=== PATIENT | male | born 1950 | race Caucasian/White ===

== ENCOUNTER 2017-10-29 18:42 | Inpatient (IN) | payer MEDICARE, OTHER ==
[~2017-10-29] VITALS: Ht 188 cm; Wt 114.9 kg
[2017-10-29 11:15] VITALS: BP 173/81; PULSE 70; RESP 18; TEMP 98; O2SAT 98
[2017-10-29 23:15] VITALS: BP 173/81; PULSE 71; RESP 18; TEMP 98; O2SAT 98
[2017-10-30] MEDS ORDERED: ALUMINUM/MAGNESIUM/SIMETH 30 ML CUP PO PRN (00:30)
[2017-10-30] MEDS ORDERED: ACETAMINOPHEN 325 MG TAB PO PRN (00:30)
[2017-10-30] MEDS ORDERED: diphenhydrAMINE HCL 50 MG CAP - HS PRN PO (00:30)
[2017-10-30] MEDS ORDERED: MAGNESIUM HYDROXIDE SUSP 30 ML CUP PO PRN (00:30)
[2017-10-30] MEDS ORDERED: NICOTINE 21 MG/24 HR PATCH T-DERMAL PRN (00:30)
[2017-10-30] MEDS ORDERED: FLUMAZENIL 0.5 MG/5 ML VIAL IV PUSH PRN (01:30)
[2017-10-30] MEDS ORDERED: LORazepam 2 MG/ML VIAL IV PUSH PRN ×4 (01:30)
[2017-10-30] MEDS ORDERED: LORazepam 2 MG TAB PO PRN (01:30)
[2017-10-30] MEDS ORDERED: LORazepam 1 MG TAB PO PRN (01:30)
[2017-10-30] MEDS ORDERED: GLUCAGON 1 MG/ML VIAL OTHER PRN ×2 (01:45→12:00)
[2017-10-30] MEDS ORDERED: DEXTROSE 50% IN WATER 50 ML VIAL(D50) IV PUSH PRN ×2 (01:45→12:00)
[2017-10-30 06:00] VITALS: BP 122/58; PULSE 56; RESP 18; TEMP 98.2; O2SAT 99
[2017-10-30] MEDS ORDERED: LOW DOSE INSULIN NOVOLOG SUPPLEMENTAL SCALE SQ SCH (08:00)
[2017-10-30 08:02] LABS: BASOPHIL % 0.5 % (0.0-2.0); EOSINOPHIL # 0.1 TH/MM3 (0-0.4); EOSINOPHIL % 1.5 % (0.0-4.0); HEMATOCRIT 42.2 % (39.0-51.0); HEMOGLOBIN 14.7 GM/DL (13.0-17.0); LYMPHOCYTE # 2.2 TH/MM3 (1.0-4.8); MEAN CORPUSCULAR HEMOGLOBIN 31.8 PG (27.0-34.0); MEAN CORPUSCULAR HGB CONC 34.9 % (32.0-36.0); MEAN PLATELET VOLUME 8.5 FL (7.0-11.0); MONO % 9.4 % (0.0-8.0); MONOCYTE # 0.7 TH/MM3 (0-0.9); NEUT % 57.6 % (16.0-70.0); PLATELET COUNT 188 TH/MM3 (150-450); RED BLOOD COUNT 4.63 MIL/MM3 (4.50-5.90); RED CELL DISTRIBUTION WIDTH 14.1 % (11.6-17.2)
[2017-10-30 08:33] LABS: ALBUMIN 3.5 GM/DL (3.4-5.0); AST (GOT) 11 U/L (15-37); BLOOD UREA NITROGEN 20 MG/DL (7-18); CALCIUM 9.2 MG/DL (8.5-10.1); CHLORIDE 100 MEQ/L (98-107); GLOMERULAR FILTRATION RATE 84 ML/MIN (>89); GLUCOSE,RANDOM 80 MG/DL (74-106); SODIUM (NA) 141 MEQ/L (136-145)
[2017-10-30 08:34] LABS: ALT (GPT) 20 U/L (12-78); CHOLESTEROL 178 MG/DL (120-200); TRIGLYCERIDES 66 MG/DL (42-150)
[2017-10-30 09:00] LABS: ALKALINE PHOSPHATASE 80 U/L (45-117); HDL CHOLESTEROL 36.3 MG/DL (40.0-60.0); LDL CHOLESTEROL 129 MG/DL (0-99); TOTAL BILIRUBIN ADULT 0.3 MG/DL (0.2-1.0); TOTAL PROTEIN 7.2 GM/DL (6.4-8.2)
--- NOTE | 2017-10-30 11:42 | PD.CONS ---
HPI Service [facility] Hospitalists Consult Requested By Dr. Belcher Reason for Consult Medical management Primary Care Physician Unknown Diagnoses: History of Present Illness 67-year-old male with a past medical history significant for HTN, HLD , DM, neuropathy, PR, bipolar disorder, schizophrenia, multiple personality disorder, tobacco and alcohol abuse who presented to [facility] psychiatric department after being placed under [place] act by police department. Spoke with nurse who states that patient apparently is homeless and was found urinating and defecating in public and therefore placed under Abrams act for his safety. Patient is seen and examined in his room and states that he was on his way to the airport to travel to see his daughter when he urinated in public and police arrested him. He reports that he had recently gone to [facility] and picked up all of his medications prior to being Abrams acted. At the time of mild evaluation he denies any fevers, chills, nausea, vomiting, diarrhea, headaches, lightheadedness, cough or shortness of breath. He does endorse dysuria which he states has been ongoing for the past 2 weeks, denies any dysuria or hesitancy. He reports taking insulin both short acting and long-acting at home for blood sugar control. He is unaware of the doses that he takes. During my interaction with him redirection is needed as patient focuses on where I am from and how old I am. He is pleasant, cooperative, and responds appropriately. Review of Systems Except as stated in HPI: all other systems reviewed are Neg Past Family Social History Allergies: Coded Allergies: benztropine (Verified Allergy, Severe, 10/29/17) PER DR BAUTISTA---PATIENT ALLERGIC TO COGENTIN haloperidol (Verified Allergy, Severe, 10/29/17) Sulfa (Sulfonamide Antibiotics) (Verified Allergy, Unknown, 10/29/17) Past Medical History Diabetes mellitus Hypertension Hyperlipidemia Neuropathy Bipolar disorder Schizophrenia Multiple personality disorder PR, denies stenting Past Surgical History Colonoscopy 4 months ago with cyst removal Active Ordered Medications Current Medications Medications (Trade) Dose Ordered Sig/Shireen Route Start Time Stop Time Status Last Admin (Benadryl) 50 mg HS PRN PO 10/30/17 00:30 (Tylenol) 650 mg Q4H PRN PO 10/30/17 00:30 (Milk Of Magnesia Liq) 30 ml DAILY PRN PO 10/30/17 00:30 (Mag-Al Plus Susp Liq) 30 ml Q6H PRN PO 10/30/17 00:30 (Habitrol 21 Mg Patch.24 Hr) 1 patch DAILY PRN T-DERMAL 10/30/17 00:30 Miscellaneous Information 1 HS T-DERMAL 10/30/17 21:00 (Ativan) 1 mg Q4H PRN PO 10/30/17 01:30 (Ativan Inj) 1 mg Q4H PRN IV PUSH 10/30/17 01:30 (Ativan) 2 mg Q2H PRN PO 10/30/17 01:30 (Ativan Inj) 2 mg Q2H PRN IV PUSH 10/30/17 01:30 (Ativan Inj) 2 mg Q1H PRN IV PUSH 10/30/17 01:30 (Ativan Inj) 2 mg Q15M PRN IV PUSH 10/30/17 01:30 (Romazicon Inj) 0.2 mg Q1M PRN IV PUSH 10/30/17 01:30 (D50w (Vial) Inj) 50 ml UNSCH PRN IV PUSH 10/30/17 12:00 (Glucagon Inj) 1 mg UNSCH PRN OTHER 10/30/17 12:00 (NovoLOG SUPPLEMENTAL SCALE) 1 ACHS SLIDING SCALE SQ 10/30/17 12:00 (Vitamin D3) 1,000 units DAILY PO 10/31/17 09:00 (SEROquel) 50 mg HS PO 10/30/17 21:00 (Depakote Dr) 500 mg BID PO 10/30/17 12:45 Family History Father: PR Mother: aneurysm Sister: GI bleed Brother: PR Social History Tobacco: 2-3 PPD X >40yrs Alcohol use: 2-6 six pack of beers daily, last drink was (10/25) per patient Illicit drug use: Marijuana, daily or as often as he can obtain Physical Exam Vital Signs Vital Signs Date Time Temp Pulse Resp B/P (MAP) Pulse Ox O2 Delivery O2 Flow Rate FiO2 10/30/17 06:00 98.2 56 18 122/58 (79) 99 10/29/17 23:15 98.0 71 18 173/81 (111) 98 Physical Exam GENERAL: This is a well-nourished, well-developed patient, in no apparent distress. SKIN: No rashes or ecchymoses. Right leg posterior ankle scab noted with no surrounding redness, warmth, or drainage. Cool and dry. HEAD: Atraumatic. Normocephalic. EYES: Pupils equal round and reactive. Extraocular motions intact. No scleral icterus. No injection or drainage. ENT: Nose without bleeding, purulent. Throat without erythema. Uvula midline. Airway patent. NECK: Trachea midline. No JVD CARDIOVASCULAR: Regular rate and rhythm without murmurs, gallops, or rubs. RESPIRATORY: Clear to auscultation. Breath sounds equal bilaterally. No wheezes , rales, or rhonchi. GASTROINTESTINAL: Abdomen soft, non-tender, nondistended. Normoactive bowel sounds in all quadrants. MUSCULOSKELETAL: Extremities without clubbing, cyanosis, or edema. No joint tenderness, effusion, or edema noted. No calf tenderness. Negative Homans sign bilaterally. NEUROLOGICAL: Awake and alert. Cranial nerves II through XII intact. Motor and sensory grossly within normal limits. Five out of 5 muscle strength in all muscle groups. Normal speech. Laboratory Laboratory Tests Test 10/30/17 06:03 White Blood Count 7.0 Red Blood Count 4.63 Hemoglobin 14.7 Hematocrit 42.2 Mean Corpuscular Volume 91.0 Mean Corpuscular Hemoglobin 31.8 Mean Corpuscular Hemoglobin Concent 34.9 Red Cell Distribution Width 14.1 Platelet Count 188 Mean Platelet Volume 8.5 Neutrophils (%) (Auto) 57.6 Lymphocytes (%) (Auto) 31.0 Monocytes (%) (Auto) 9.4 Eosinophils (%) (Auto) 1.5 Basophils (%) (Auto) 0.5 Neutrophils # (Auto) 4.0 Lymphocytes # (Auto) 2.2 Monocytes # (Auto) 0.7 Eosinophils # (Auto) 0.1 Basophils # (Auto) 0.0 CBC Comment DIFF FINAL Differential Comment Blood Urea Nitrogen 20 Creatinine 0.90 Random Glucose 80 Total Protein 7.2 Albumin 3.5 Calcium Level 9.2 Alkaline Phosphatase 80 Aspartate Amino Transf (AST/SGOT) 11 Alanine Aminotransferase (ALT/SGPT) 20 Total Bilirubin 0.3 Sodium Level 141 Potassium Level 4.9 Chloride Level 100 Carbon Dioxide Level 34.0 Anion Gap 7 Estimat Glomerular Filtration Rate 84 Triglycerides Level 66 Cholesterol Level 178 LDL Cholesterol 129 HDL Cholesterol 36.3 Cholesterol/HDL Ratio 4.90 Vitamin B12 Level 723 25-Hydroxy Vitamin D Total 18.0 Thyroid Stimulating Hormone 3rd Gen 4.270 Result Diagram: 10/30/17 0603 10/30/17 0603 Assessment and Plan Assessment and Plan 67-year-old male with a past medical history significant for HTN, HLD , DM, neuropathy, PR, bipolar disorder, schizophrenia, multiple personality disorder, tobacco and alcohol abuse who presented to [facility] psychiatric department after being placed under Abrams act by police department after he was found urinating defecating in public. [facility] consulted to assist with ongoing medical management. Bipolar/multiple personality disorder Schizophrenia -Management per psychiatry, greatly appreciated. Diabetes mellitus -1800 ADA diet, Accu-Cheks with insulin sliding scale -Nurse to complete medication reconciliation, will start dose of long-acting insulin -Hemoglobin A1c pending -Monitor blood sugars and adjust insulin accordingly HTN/?PR HLD -Patient to complete medication reconciliation -Initial blood pressure elevated, BP this morning stable -LDL 129, will need statin given PR history Vitamin D deficiency - Start cholecalciferol 1,000units daily Alcohol/tobacco abuse -Counseled on the importance of cessation of both tobacco and alcohol consumption and dangers associated with each. -Nicotine patch on board -Patient reports his last alcohol drink on , CIWA, monitor for DT's Abnormal TSH -TSH 4.27, free T4 1.03, no treatment indicated at the moment. DVT prophylaxis-ambulating Thank you for this consultation, will continue to follow along. Discussed Condition With Simi Leigh Oct 30, 2017 11:42
[2017-10-30] MEDS: INSULIN ASPART SUPPLEMENTAL SCALE SQ SCH ×3 (12:00→21:00)
[2017-10-30] MEDS: DIVALPROEX DR 500 MG TABEC PO SCH ×2 (12:45→20:23)
[2017-10-30] MEDS ORDERED: HUMALOG SQ (14:47)
[2017-10-30] MEDS ORDERED: DEPA500T3 PO (14:47)
[2017-10-30] MEDS ORDERED: FOLI800T PO (14:47)
[2017-10-30] MEDS ORDERED: THERM PO (14:47)
[2017-10-30] MEDS ORDERED: DULE100A INH (14:47)
[2017-10-30] MEDS ORDERED: LEVEMIR SQ (14:47)
[2017-10-30] MEDS ORDERED: HUMALOG (14:47)
[2017-10-30 16:00] VITALS: BP 160/75; PULSE 59; RESP 18; TEMP 98.3; O2SAT 96
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
[2017-10-30 16:27] LABS: HEMOGLOBIN A1C 10.1 % (4.3-6.0)
[2017-10-30] MEDS: REMOVE OLD NICOTINE PATCH T-DERMAL SCH (21:00)
[2017-10-30] MEDS ORDERED: QUEtiapine FUMARATE 25 MG TAB PO SCH (21:00)
[2017-10-31 05:32] VITALS: BP 117/62; PULSE 58; RESP 16; TEMP 98.2; O2SAT 98
[2017-10-31] MEDS: INSULIN ASPART SUPPLEMENTAL SCALE SQ SCH ×4 (08:00→20:50)
[2017-10-31] MEDS ORDERED: INSULIN DETEMIR 100 UNITS/ML VIAL SQ SCH ×2 (09:00→21:00)
[2017-10-31] MEDS: FOLIC ACID 1 MG TAB PO SCH (09:24)
[2017-10-31] MEDS: CHOLECALCIFEROL (VIT D3) 1000 UNIT TAB PO SCH (09:24)
[2017-10-31] MEDS: MULTIVITAMINS/MINERALS THERAPEUTIC TAB PO SCH (09:24)
[2017-10-31] MEDS: DIVALPROEX DR 500 MG TABEC PO SCH ×2 (09:24→21:55)
--- NOTE | 2017-10-31 10:29 | HHI.PYPN ---
Subjective Remarks Patient seen for follow, chart reviewed. Discussion nursing staff reported the patient is noted to be somewhat loud on the unit but not aggressive and compliant with treatment. Patient was found lying hospital bed B, cooperative. Patient states that he slept well, eating and drinking well with no difficulty with bowel movement. Patient reports tolerating medications well. Patient states that he was planning to go to the bus station to go back to [place] in contrast to's statement of him having plan to fly back to [place]. Patient mentions that he last spoke to his daughter 2 weeks ago, has been homeless for the past 3-4 months after his discharge from sober living facility which she was house that for 8 weeks. Patient states that he injured this over living facility after his last discharge from what may be an inpatient psychiatry unit although he refers to it as [facility]. Patient states "[facility] because I was manic depressive". 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 Review of Systems Except as stated in HPI: all other systems reviewed are Neg Mental Status Examination Appearance: Disheveled Consciousness: Alert Orientation: Person, Place Motor Activity: Normal gait Speech: Unremarkable Language: Adequate Fund of Knowledge: Inadequate Attention and Concentration: Adequate Memory: Unremarkable Mood: Appropriate Affect: Appropriate Thought Process & Associations: Disorganized (At times), Other ([place]) Thought Content: Bizarre thinking, Delusional Hallucination Type: None Delusion Type: Bizarre Suicidal Ideation: No Suicidal Plan: No Suicidal Intention: No Homicidal Ideation: No Homicidal Plan: No Homicidal Intention: No Insight: Poor Judgment: Poor Results Vitals/IOs Vital Signs Date Time Temp Pulse Resp B/P (MAP) Pulse Ox O2 Delivery O2 Flow Rate FiO2 10/31/17 05:32 98.2 58 16 117/62 (80) 98 Intake and Output 10/31/17 10/31/17 11/01/17 08:00 16:00 00:00 Intake Total 240 ml Balance 240 ml Assessment & Plan Problem List: (1) Schizophrenia ICD Codes: F20.9 - Schizophrenia, unspecified Assessment & Plan Patient this time continue with some disorganization, poor insight to his mental illness but has been compliant with treatment. We will continue to titrate quetiapine to therapeutic dose, 100mg tonight, continue Depakote and will draw Depakote level 11/02/17. Continue monitor mood and behavior. Treatment team to consider explore disposition in regards to housing post discharge. Discharge planning in progress. Justification for Cont. Inpt. At risk for decompensation at lower level of care Sean Jackman MD Oct 31, 2017 10:28
--- NOTE | 2017-10-31 14:23 | HHI.PR ---
Subjective Remarks Follow-up visit for diabetes, HTN, and dysuria. Patient seen and examined resting comfortably in bed in no acute distress. He denies any fevers, chills, nausea, vomiting, diarrhea or headaches. He does continue to complain of some stinging with urination, denies any hematuria, or back pain. Spoke with nurse who reports patient has been having blood sugars in the 200s. Objective Vitals Vital Signs Date Time Temp Pulse Resp B/P (MAP) Pulse Ox O2 Delivery O2 Flow Rate FiO2 10/31/17 05:32 98.2 58 16 117/62 (80) 98 10/30/17 16:00 98.3 59 18 160/75 (103) 96 I/O 10/30/17 10/30/17 10/30/17 10/31/17 10/31/17 10/31/17 07:00 15:00 23:00 07:00 15:00 23:00 Intake Total 480 ml 480 ml 480 ml Balance 480 ml 480 ml 480 ml Intake Oral 480 ml 480 ml 480 ml Result Diagram: 10/30/1760210/30/17 06 Objective Remarks GENERAL: This is a well-nourished, well-developed patient, in no apparent distress. SKIN: No rashes or ecchymoses. Right leg posterior ankle scab noted with no surrounding redness, warmth, or drainage. Cool and dry. HEAD: Atraumatic. Normocephalic. EYES: Pupils equal round and reactive. Extraocular motions intact. No scleral icterus. No injection or drainage. ENT: Nose without bleeding, purulent. Throat without erythema. Uvula midline. Airway patent. NECK: Trachea midline. No JVD CARDIOVASCULAR: Regular rate and rhythm without murmurs, gallops, or rubs. RESPIRATORY: Clear to auscultation. Breath sounds equal bilaterally. No wheezes , rales, or rhonchi. GASTROINTESTINAL: Abdomen soft, non-tender, nondistended. Normoactive bowel sounds in all quadrants. MUSCULOSKELETAL: Extremities without clubbing, cyanosis, or edema. No joint tenderness, effusion, or edema noted. No calf tenderness. Negative Homans sign bilaterally. NEUROLOGICAL: Awake and alert. Cranial nerves II through XII intact. Motor and sensory grossly within normal limits. Five out of 5 muscle strength in all muscle groups. Normal speech. A/P Assessment and Plan 67-year-old male with a past medical history significant for HTN, HLD , DM, neuropathy, [place], bipolar disorder, schizophrenia, multiple personality disorder, tobacco and alcohol abuse who presented to [place] psychiatric department after being placed under [place] act by police department after he was found urinating defecating in public. [facility] consulted to assist with ongoing medical management. Bipolar/multiple personality disorder Schizophrenia -Management per psychiatry, greatly appreciated. Diabetes mellitus -1800 ADA diet, Accu-Cheks with insulin sliding scale blood sugars in the 200s today -Hemoglobin A1c 10.1 -Will increase daytime Levemir to 12 units, add 10 units of Levemir at at bedtime -Continue monitoring blood sugars and adjusting accordingly -Consult special educator, consult dietary to advise on increased fluid portions HTN/?[place] HLD - BP stable -LDL 129, will need statin given [place] history and diabetic history - Start Pravastatin 20mg HS Vitamin D deficiency - Start cholecalciferol 1,000units daily Alcohol/tobacco abuse -Counseled on the importance of cessation of both tobacco and alcohol consumption and dangers associated with each. -Nicotine patch on board -Patient reports his last alcohol drink on , CIWA, monitor for DT's Abnormal TSH -TSH 4.27, free T4 1.03, no treatment indicated at the moment. Dysuria - UA completed, negative, +for glucose DVT prophylaxis-ambulating Plan discussed with patient and nurse. Simi Greene Oct 31, 2017 14:22
--- NOTE | 2017-10-31 14:35 | PD.TTN ---
Patient Problems 1. Discharge planning 2. Medication compliance 3. Knowledge deficit 4. Lack of coping skills Progress Toward Goals Provider Present: Dr. Hao Jackman Provider Input: 10/31/17 patient appears known to local police and community/sma he has been off his meds, will start on medications and titrate them for a few days, he voiced wish to go back to [place] Psychiatric Counselors Present: Amarilys Lopez LCSW Psych Therapist Input: 10/31/17 he appears somewhat manic and impulsive, grandiose and delusional having several wifes and no idea how many children, but provided info on 2 daughtesr in [facility] tried to call them and no answer Group Spec/RT/OT/HOWARD Present: LEE Figueroa Group Spec/RT/OT/HOWARD Input: 10/31/17 new but appears to engage wanting to go outside and talk and socialize Amarilys Lopez LCSW Oct 31, 2017 14:35
[2017-10-31 15:17] LABS: BILIRUBIN, URINE NEG (NEG); BLOOD, URINE NEG (NEG); GLUCOSE,URINE 300 mg/dL (NEG); KETONE, URINE NEG (NEG); NITRITE,URINE NEG (NEG); URINE COLOR LIGHT-YELLOW (YELLW/STRAW); URINE LEUKOCYTE ESTERASE NEG (NEG)
[2017-10-31] MEDS: metFORMIN HCL 500 MG TAB PO SCH (16:56)
[2017-10-31 18:02] VITALS: BP 144/82; PULSE 77; RESP 16; TEMP 97.1; O2SAT 98
[2017-10-31] MEDS ORDERED: QUEtiapine FUMARATE 100 MG TAB PO SCH (21:00)
[2017-10-31] MEDS: REMOVE OLD NICOTINE PATCH T-DERMAL SCH (21:00)
[2017-10-31] MEDS: PRAVASTATIN SOD 20 MG TAB PO SCH (21:56)
--- NOTE | 2017-10-31 22:53 | EKG ---
Date Performed: 10/31/2017 Time Performed: 12:02:27 PTAGE: 67 years EKG: Sinus rhythm WITH FIRST DEGREE AV BLOCK PATTERN CONSISTENT WITH PULMONARY DISEASE LEFT ANTERIOR FASCICULAR BLOCK ABNORMAL ECG NO PREVIOUS TRACING DOCTOR: Abimael Magallanes Interpretating Date/Time 10/31/2017 22:51:02
[2017-11-01 04:44] VITALS: BP 128/66; PULSE 66; RESP 16; TEMP 98.2; O2SAT 98
[2017-11-01] MEDS: INSULIN ASPART SUPPLEMENTAL SCALE SQ SCH ×4 (07:38→20:28)
[2017-11-01] MEDS: DIVALPROEX DR 500 MG TABEC PO SCH ×2 (07:39→20:28)
[2017-11-01] MEDS: metFORMIN HCL 500 MG TAB PO SCH ×2 (07:39→16:44)
[2017-11-01] MEDS: INSULIN DETEMIR 100 UNITS/ML VIAL SQ SCH (07:40)
[2017-11-01] MEDS: MULTIVITAMINS/MINERALS THERAPEUTIC TAB PO SCH (07:40)
[2017-11-01] MEDS: FOLIC ACID 1 MG TAB PO SCH (07:40)
[2017-11-01] MEDS: CHOLECALCIFEROL (VIT D3) 1000 UNIT TAB PO SCH (07:41)
--- NOTE | 2017-11-01 10:39 | HHI.PYPN ---
Subjective Remarks Patient seen for follow, chart reviewed. Discussion nursing staff reported the patient has been compliant with treatment has not had any behavioral disturbances since admission to the unit. Patient was found ambulating noted B , cooperative with interview. Patient state he has been feeling "great" denying any perceptual disturbances, denies any SI or HI. Patient states that he continues to plan to go to [place] where his assistant activities director will continue to assist him with his finances. Patient noted to be's slightly hyperverbal with slightly pressured speech but improving. Review of Systems Except as stated in HPI: all other systems reviewed are Neg Mental Status Examination Appearance: Disheveled Consciousness: Alert Orientation: Person, Place Motor Activity: Normal gait Speech: Unremarkable Language: Adequate Fund of Knowledge: Inadequate Attention and Concentration: Adequate Memory: Unremarkable Mood: Appropriate Affect: Appropriate Thought Process & Associations: Disorganized (At times), Other ([place]) Thought Content: Bizarre thinking (Less so today), Delusional (Less so today) Hallucination Type: None Delusion Type: Bizarre Suicidal Ideation: No Suicidal Plan: No Suicidal Intention: No Homicidal Ideation: No Homicidal Plan: No Homicidal Intention: No Insight: Poor Judgment: Poor Results Labs Labs reviewed Test 10/31/17 14:23 Urine Color LIGHT-YELLOW Urine Turbidity CLEAR Urine pH 7.0 Urine Specific [place] 1.007 Urine Protein NEG mg/dL Urine Glucose (UA) 300 mg/dL Urine Ketones NEG mg/dL Urine Occult Blood NEG Urine Nitrite NEG Urine Bilirubin NEG Urine Urobilinogen LESS THAN 2.0 MG/DL Urine Leukocyte Esterase NEG Urine RBC 2 /hpf Urine WBC 1 /hpf Microscopic Urinalysis Comment CULT NOT INDICATED Vitals/IOs Vital Signs Date Time Temp Pulse Resp B/P (MAP) Pulse Ox O2 Delivery O2 Flow Rate FiO2 11/01/17 04:44 98.2 66 16 128/66 (86) 98 Assessment & Plan Problem List: (1) Schizophrenia ICD Codes: F20.9 - Schizophrenia, unspecified Assessment & Plan Patient at this time noted to be less delusional less bizarre noted to be with less pressured speech and hyperverbal. We will continue to titrate quetiapine to 200 mg p.o. at bedtime tonight. Continue monitor mood and behavior. VPA level scheduled for tomorrow morning a.m. prior his first dose. Discharge planning in progress Justification for Cont. Inpt. At risk for further decompensation at lower level of care Discharge Planning Patient return to [place] upon discharge Sean Jackman MD Nov 01, 2017 10:39
--- NOTE | 2017-11-01 11:54 | HHI.PR ---
Subjective Remarks Follow-up visit for diabetes, HTN, and dysuria. Patient seen and examined in his room in no acute distress. He reports that he may be discharged tomorrow, denies any fevers, chills, nausea, vomiting, headaches or diarrhea. Discussed with nurse who reports high blood sugars throughout the day. Objective Vitals Vital Signs Date Time Temp Pulse Resp B/P (MAP) Pulse Ox O2 Delivery O2 Flow Rate FiO2 11/01/17 04:44 98.2 66 16 128/66 (86) 98 10/31/17 18:02 97.1 77 16 144/82 (102) 98 I/O 10/31/17 10/31/17 10/31/17 11/01/17 11/01/17 11/01/17 07:00 15:00 23:00 07:00 15:00 23:00 Intake Total 480 ml 360 ml 480 ml Balance 480 ml 360 ml 480 ml Intake Oral 480 ml 360 ml 480 ml # Voids 2 Result Diagram: 10/30/1760210/30/17602 Objective Remarks GENERAL: This is a well-nourished, well-developed patient, in no apparent distress. SKIN: No rashes or ecchymoses. Right leg posterior ankle scab noted with no surrounding redness, warmth, or drainage. Cool and dry. HEAD: Atraumatic. Normocephalic. EYES: Pupils equal round and reactive. Extraocular motions intact. No scleral icterus. No injection or drainage. ENT: Nose without bleeding, purulent. Throat without erythema. Uvula midline. Airway patent. NECK: Trachea midline. No JVD CARDIOVASCULAR: Regular rate and rhythm without murmurs, gallops, or rubs. RESPIRATORY: Clear to auscultation. Breath sounds equal bilaterally. No wheezes , rales, or rhonchi. GASTROINTESTINAL: Abdomen soft, non-tender, nondistended. Normoactive bowel sounds in all quadrants. MUSCULOSKELETAL: Extremities without clubbing, cyanosis, or edema. No joint tenderness, effusion, or edema noted. NEUROLOGICAL: Awake and alert oriented x3 Motor and sensory grossly within normal limits. Normal speech. A/P Assessment and Plan 67-year-old male with a past medical history significant for HTN, HLD , DM, neuropathy, [place], bipolar disorder, schizophrenia, multiple personality disorder, tobacco and alcohol abuse who presented to [place] psychiatric department after being placed under Abrams act by police department after he was found urinating defecating in public. [facility] consulted to assist with ongoing medical management. Bipolar/multiple personality disorder Schizophrenia -Management per psychiatry, greatly appreciated. Diabetes mellitus -1800 ADA diet, Accu-Cheks with insulin sliding scale blood sugars in the 200s today -Hemoglobin A1c 10.1 -Continue AM Levemir at 12 units, increase HS Levemir 15 units, increase ISS to medium dose. -Continue monitoring blood sugars and adjusting accordingly -perioperative educator consulted, diet changed to 1999 ADA with "free additional foods". HTN/?[place] HLD - BP stable - LDL 129, will need statin given [place] history and diabetic history - Continue Pravastatin 20mg HS Vitamin D deficiency - Start cholecalciferol 1,000units daily Alcohol/tobacco abuse -Counseled on the importance of cessation of both tobacco and alcohol consumption and dangers associated with each. -Nicotine patch on board -Patient reports his last alcohol drink on , CIWA, monitor for DT's Abnormal TSH -TSH 4.27, free T4 1.03, no treatment indicated at the moment. Dysuria - UA completed, negative, +for glucose - Reports that it has improved today DVT prophylaxis-ambulating Plan discussed with patient and nurse. Simi Greene Nov 01, 2017 11:54
[2017-11-01 18:03] VITALS: BP 141/79; PULSE 72; RESP 17; TEMP 98.1; O2SAT 98
[2017-11-01] MEDS: PRAVASTATIN SOD 20 MG TAB PO SCH (20:28)
[2017-11-01] MEDS: QUEtiapine FUMARATE 200 MG TAB PO SCH (20:28)
[2017-11-01] MEDS: REMOVE OLD NICOTINE PATCH T-DERMAL SCH (20:54)
[2017-11-01] MEDS ORDERED: INSULIN DETEMIR 100 UNITS/ML VIAL SQ SCH (21:00)
[2017-11-02] MEDS: INSULIN ASPART SUPPLEMENTAL SCALE SQ SCH ×4 (08:00→21:32)
[2017-11-02] MEDS ORDERED: FOLI1TAB6 PO (08:03)
[2017-11-02] MEDS ORDERED: QUET1TAB9 PO (08:03)
[2017-11-02] MEDS ORDERED: CHOL1000 PO (08:03)
[2017-11-02] MEDS ORDERED: METF500 PO (08:03)
[2017-11-02] MEDS ORDERED: LEVEMIR SQ ×4 (08:03→14:49)
[2017-11-02] MEDS ORDERED: DIVA500T PO (08:03)
[2017-11-02] MEDS ORDERED: PRAV20TA PO (08:03)
[2017-11-02] MEDS ORDERED: THERM PO (08:03)
[2017-11-02] MEDS: CHOLECALCIFEROL (VIT D3) 1000 UNIT TAB PO SCH (08:41)
[2017-11-02] MEDS: FOLIC ACID 1 MG TAB PO SCH (08:41)
[2017-11-02] MEDS: metFORMIN HCL 500 MG TAB PO SCH ×2 (08:41→16:31)
[2017-11-02] MEDS: MULTIVITAMINS/MINERALS THERAPEUTIC TAB PO SCH (08:41)
[2017-11-02] MEDS: DIVALPROEX DR 500 MG TABEC PO SCH ×2 (08:41→21:26)
[2017-11-02] MEDS: INSULIN DETEMIR 100 UNITS/ML VIAL SQ SCH (08:42)
[2017-11-02 09:11] VITALS: BP 128/60; PULSE 60; RESP 16; TEMP 97.9; O2SAT 98
[2017-11-02] MEDS ORDERED: LANCETS1 MI1 (13:14)
[2017-11-02] MEDS ORDERED: INSU1MIS15 (13:14)
[2017-11-02] MEDS ORDERED: GLUCTES12 (13:14)
[2017-11-02] MEDS ORDERED: GLUCKIT15 (13:14)
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
--- NOTE | 2017-11-02 15:19 | HHI.PR ---
Subjective Remarks Follow-up visit for diabetes, hypertension. Patient seen and examined in room resting comfortably. He reports that he will be discharged later today. Denies any fevers, chills, nausea, vomiting, diarrhea or headaches. Discussed with patient the importance of follow-up with primary care provider once he leaves, verbalized understanding. Objective Vitals Vital Signs Date Time Temp Pulse Resp B/P (MAP) Pulse Ox O2 Delivery O2 Flow Rate FiO2 11/02/17 09:11 97.9 60 16 128/60 (82) 98 11/01/17 18:03 98.1 72 17 141/79 (99) 98 I/O 11/01/17 11/01/17 11/01/17 11/02/17 11/02/17 11/02/17 07:00 15:00 23:00 07:00 15:00 23:00 Intake Total 480 ml 480 ml 960 ml 480 ml Balance 480 ml 480 ml 960 ml 480 ml Intake Oral 480 ml 480 ml 960 ml 480 ml # Voids 2 2 1 Result Diagram: 10/30/1760210/30/17 06 Objective Remarks GENERAL: This is a well-nourished, well-developed patient, in no apparent distress. SKIN: Right leg posterior ankle scab noted with no surrounding redness, warmth, or drainage. Cool and dry. HEAD: Atraumatic. EYES: Pupils equal round and reactive. No scleral icterus. No injection or drainage. ENT: Nose without bleeding, purulent. Airway patent. NECK: Trachea midline. No JVD CARDIOVASCULAR: Regular rate and rhythm without murmurs, gallops, or rubs. RESPIRATORY: Clear to auscultation. Breath sounds equal bilaterally. No wheezes , rales, or rhonchi. GASTROINTESTINAL: Abdomen soft, non-tender, nondistended. Normoactive bowel sounds in all quadrants. MUSCULOSKELETAL: Extremities without clubbing, cyanosis, or edema. No joint tenderness, effusion, or edema noted. NEUROLOGICAL: Awake and alert oriented x3 Motor and sensory grossly within normal limits. Normal speech. A/P Assessment and Plan 67-year-old male with a past medical history significant for HTN, HLD , DM, neuropathy, [place], bipolar disorder, schizophrenia, multiple personality disorder, tobacco and alcohol abuse who presented to [place] psychiatric department after being placed under [place] act by police department after he was found urinating defecating in public. [facility] consulted to assist with ongoing medical management. Bipolar/multiple personality disorder Schizophrenia -Management per psychiatry, greatly appreciated. Diabetes mellitus -1800 ADA diet, Accu-Cheks with insulin sliding scale blood sugars in the 200s today -Hemoglobin A1c 10.1, blood sugars continue to be high in the 200s and this afternoon 300s. -Increase morning Levemir to 15 units, increase bedtime Levemir to 18 units, continue ISS to medium dose. -Discussed with patient the importance of following up with PCP to continue ongoing insulin adjustments, voiced understanding. -life skills educator consulted, diet changed to 1999 ADA with "free additional foods". HTN/?[place] HLD - BP stable - LDL 129, will need statin given [place] history and diabetic history - Continue Pravastatin 20mg HS Vitamin D deficiency - Continue cholecalciferol 1,000units daily Alcohol/tobacco abuse -Counseled on the importance of cessation of both tobacco and alcohol consumption and dangers associated with each. -Nicotine patch on board -Patient reports his last alcohol drink on , ALEENA, monitor for DT's Abnormal TSH -TSH 4.27, free T4 1.03, no treatment indicated at the moment. DVT prophylaxis-ambulating Plan discussed with patient and nurse. Patient will be discharged today, medically cleared for discharge. Simi Greene Nov 02, 2017 15:19
[2017-11-02 18:05] VITALS: BP 127/72; PULSE 87; RESP 16; TEMP 98; O2SAT 98
[2017-11-02] MEDS: QUEtiapine FUMARATE 200 MG TAB PO SCH (21:00)
[2017-11-02] MEDS ORDERED: INSULIN DETEMIR 100 UNITS/ML VIAL SQ SCH (21:00)
[2017-11-02] MEDS: REMOVE OLD NICOTINE PATCH T-DERMAL SCH (21:00)
[2017-11-02] MEDS: PRAVASTATIN SOD 20 MG TAB PO SCH (21:26)
[2017-11-03] MEDS ORDERED: INSULIN DETEMIR 100 UNITS/ML VIAL SQ SCH (09:00)
== END 2017-11-02 22:50 | disposition home or self-care (01) | DRG 885 ==
LOC: H250 23:00
PROVIDERS: ADMIT Student in an Organized Health Care Education/Training Program; ATTEND Student in an Organized Health Care Education/Training Program
DX: F20.9 Schizophrenia, unspecified (principal); E11.40 Type 2 diabetes mellitus with diabetic neuropathy, unspecified; I10 Essential (primary) hypertension; F31.9 Bipolar disorder, unspecified; Z91.5 Personal history of self-harm; F12.90 Cannabis use, unspecified, uncomplicated; Z72.89 Other problems related to lifestyle; Z59.0 Homelessness; E78.5 Hyperlipidemia, unspecified; R30.0 Dysuria; Z72.0 Tobacco use; I25.2 Old myocardial infarction; E55.9 Vitamin D deficiency, unspecified; R94.6 Abnormal results of thyroid function studies; Z81.8 Family history of other mental and behavioral disorders
CPT/HCPCS: 80053; 80061; 80164; 81001; 82306; 82607; 82948; 83036; 84439; 84443; 85025; 93005; J1815